=== PATIENT | male | born 1975 | race American Indian/Alaskan Native ===

== ENCOUNTER 2020-08-15 17:47 | Emergency (ER) | payer SELFPAY ==
[2020-08-15 19:36] VITALS: BP 108/69
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
== END 2020-08-15 21:00 | disposition home or self-care (01) ==
LOC: ED 17:47
DX: T24.011A Burn of unspecified degree of right thigh, initial encounter (principal); X08.8XXA Exposure to other specified smoke, fire and flames, initial encounter; Y93.89 Activity, other specified; Y92.89 Other specified places as the place of occurrence of the external cause; Y99.8 Other external cause status
CPT/HCPCS: 99281